=== PATIENT | male | born 1955 | race African-American/Black ===

== ENCOUNTER → 2018-05-22 | Outpatient (CLI) | payer OTHER ==
[2018-05-22 14:51] LABS: ADD MAN DIFF? NO
[2018-05-22 14:55] LABS: BASO % 1 % (0-3); EOS # 0.1 x10^3/uL (0.0-0.7); EOS % 2 % (0-3); HEMATOCRIT 44.3 % (39.0-53.0); HEMOGLOBIN 15.1 g/dL (13.0-17.5); LYMPH # 1.7 x10^3/uL (1.0-4.8); LYMPH % 33 % (24-48); MEAN CORPUSCULAR HEMOGLOBIN 31 pg (25-35); MEAN CORPUSCULAR HGB CONC 34 g/dL (31-37); MEAN CORPUSCULAR VOLUME 92 fL (79-100); MONO # 0.4 x10^3/uL (0.0-1.1); MONO % 7 % (0-9); NEUT # 2.9 x10^3uL (1.8-7.7); NEUT % 57 % (31-73); PLATELET COUNT 190 x10^3/uL (140-400); RED BLOOD COUNT 4.84 x10^6/uL (4.30-5.70); RED CELL DISTRIBUTION WIDTH 13.1 % (11.5-14.5); WHITE BLOOD COUNT 5.1 x10^3/uL (4.0-11.0)
[2018-05-22 15:09] LABS: ANION GAP 9 (6-14); BLOOD UREA NITROGEN 15 mg/dL (8-26); CALCIUM 8.7 mg/dL (8.5-10.1); CARBON DIOXIDE 23 mmol/L (21-32); CHLORIDE 105 mmol/L (98-107); CREATININE 1.1 mg/dL (0.7-1.3); GFR 82.3; GLUCOSE 294 mg/dL (70-99); POTASSIUM 3.9 mmol/L (3.5-5.1); SODIUM 137 mmol/L (136-145)
== END | disposition home or self-care (01) ==
LOC: SURGPAT 13:44
DX: Z01.818 Encounter for other preprocedural examination (principal); I10 Essential (primary) hypertension; E11.9 Type 2 diabetes mellitus without complications; E78.00 Pure hypercholesterolemia, unspecified; K21.9 Gastro-esophageal reflux disease without esophagitis
CPT/HCPCS: 36415; 80048; 85025; 93005

== ENCOUNTER 2018-05-25 05:44 | Day surgery (SDC) | payer OTHER ==
[2018-05-25 06:37] LABS: POC GLUCOSE 172 mg/dL (70-99)
[2018-05-25] MEDS: IV RINGERS,LACTATED 1000ML 1,000 ML IV (06:39)
[2018-05-25] MEDS ORDERED: MORPHINE SULFATE 2 MG/ML DISP.SYRIN. IV (07:00)
[2018-05-25] MEDS ORDERED: fentaNYL PF VIAL 100 MCG/2 ML VIAL IV (07:00)
[2018-05-25] MEDS ORDERED: LIDOCAINE 1% PF 2 ML VIAL. ID (07:00)
[2018-05-25] MEDS ORDERED: PROCHLORPERAZINE 10 MG/2 ML VIAL. IV (07:00)
[2018-05-25] MEDS ORDERED: PROPOFOL 20 ML IV (07:28)
[2018-05-25] MEDS ORDERED: KETOROLAC 30 MG/ML INJ FOR OR. INJ (07:28)
[2018-05-25] MEDS ORDERED: MIDAZOLAM HCL/PF 2 MG/2 ML VIAL. (07:28)
[2018-05-25] MEDS ORDERED: fentaNYL PF VIAL 100 MCG/2 ML VIAL ×2 (07:28→10:35)
[2018-05-25] MEDS ORDERED: ROCURONIUM 50 MG/5 ML VIAL. (07:28)
[2018-05-25] MEDS ORDERED: DEXAMETHASONE SOD PHOS 20 MG/5 ML VIAL. (07:28)
[2018-05-25] MEDS ORDERED: LIDOCAINE 2% PF Vial for OR 5 ML VIAL. (07:28)
[2018-05-25] MEDS ORDERED: ONDANSETRON PF 4 MG/2 ML VIAL. (07:28)
[2018-05-25] MEDS ORDERED: SEVOFLURANE 61 TO 120 MINUTES. IH (07:28)
[2018-05-25] MEDS: BUPIVACAINE-EPI 0.25%-1:200000 50 ML VIAL. (08:23)
[2018-05-25] MEDS ORDERED: ESMOLOL 100 MG/10 ML VIAL. IV (08:30)
[2018-05-25] MEDS ORDERED: LABETALOL 20 MG/4 ML DISP.SYRIN. IVP (08:34)
[2018-05-25] MEDS ORDERED: GLYCOPYRROLATE 1 MG/5 ML VIAL. (08:43)
[2018-05-25] MEDS ORDERED: NEOSTIGMINE METHYLSULFATE 5 MG/5 ML SYRINGE. (08:44)
[2018-05-25 10:36] LABS: POC GLUCOSE 223 mg/dL (70-99)
[2018-05-25] MEDS: fentaNYL PF VIAL 100 MCG/2 ML VIAL IV ×2 (10:40→10:55)
[2018-05-25] MEDS: INSULIN ASPART 100 UNIT/ML 10ML VIAL. SQ (10:52)
[2018-05-25] MEDS: ONDANSETRON PF 4 MG/2 ML VIAL. IV (11:35)
[2018-05-25] MEDS ORDERED: ceFAZolin 2GM PREMIX 2 GM/50 ML BAG IV (12:00)
[2018-05-25] MEDS: oxyCODONE/APAP 5/325 1 TAB TABLET PO (12:06)
== END 2018-05-25 13:05 | disposition home or self-care (01) ==
LOC: SURG 05:44
DX: K43.0 Incisional hernia with obstruction, without gangrene (principal); K66.0 Peritoneal adhesions (postprocedural) (postinfection); I10 Essential (primary) hypertension; E78.00 Pure hypercholesterolemia, unspecified; I48.91 Unspecified atrial fibrillation; Z86.010 Personal history of colon polyps; Z90.49 Acquired absence of other specified parts of digestive tract; E66.9 Obesity, unspecified; K21.9 Gastro-esophageal reflux disease without esophagitis; M19.90 Unspecified osteoarthritis, unspecified site; E11.9 Type 2 diabetes mellitus without complications; F41.9 Anxiety disorder, unspecified; Z79.84 Long term (current) use of oral hypoglycemic drugs
CPT/HCPCS: 49655; 82962; A7015; C1781; J0690; J1100; J1885; J2001; J2250; J2405; J2704; J2710; J3010; J3490